=== PATIENT | female | born 1995 | race Caucasian/White ===

== ENCOUNTER 2017-01-14 13:45 | Emergency (ER) | payer OTHER ==
[2017-01-14 14:31] LABS: BASO % 0.2 % (0.1-1.2); EOS # 0.3 10_X3_uL (0.0-0.4); EOS % 2.3 % (0.7-5.8); GRAN # 9.2 10_X3_uL (1.6-6.1); GRAN % 74.6 % (34.0-71.1); HEMATOCRIT 37.8 % (34-45); HEMOGLOBIN 12.1 g/dL (11.2-15.7); LYMPH # 2.1 10_X3_uL (1.2-3.7); MEAN CORPUSCULAR HEMOGLOBIN 26.8 pg (27.0-33.0); MEAN CORPUSCULAR VOLUME 83.6 fL (79-95); MEAN PLATELET VOLUME 10.4 fl (7.5-11.5); MONO # 0.7 10_X3_uL (0.2-0.9); MONO % 5.9 % (4.7-12.5); PLATELET COUNT 279 x10_3/uL (182-369); RED BLOOD COUNT 4.52 x10_6/uL (3.9-5.2); WHITE BLOOD COUNT 12.4 x10_3/uL (4.0-10.0)
[2017-01-14 14:52] LABS: ALBUMIN 4.8 gm/dL (3.4-5.0); ALKALINE PHOSPHATASE 110 U/L (50-136); ALT/SGPT 18 U/L (3.5-33.9); AMYLASE 76 U/L (15.62-74.58); AST/SGOT 25 U/L (7.04-26.96); BILIRUBIN,TOTAL 0.37 mg/dL (0.0-1.0); BLOOD UREA NITROGEN 15 mg/dL (7-18); CALCIUM 9.1 mg/dL (8.7-10.7); CARBON DIOXIDE 26 mmol/L (21-32); CREATININE 0.6 mg/dL (0.6-1.3); GLUCOSE,RANDOM 74 mg/dL (70-99); LIPASE 18 U/L (6.75-60.75); SODIUM 140 mmol/L (136-145); TOTAL PROTEIN 7.9 gm/dL (6.4-8.2)
[2017-01-14 15:03] LABS: POTASSIUM 2.9 mmol/L (3.5-5.1)
== END 2017-01-14 18:29 | disposition home or self-care (01) ==
LOC: ER 13:45
PROVIDERS: Emergency Medicine
DX: R11.2 Nausea with vomiting, unspecified (principal); E87.6 Hypokalemia; N83.291 Other ovarian cyst, right side; M54.5 Low back pain; G40.909 Epilepsy, unspecified, not intractable, without status epilepticus; Z98.890 Other specified postprocedural states; Z88.7 Allergy status to serum and vaccine; Z79.899 Other long term (current) drug therapy
CPT/HCPCS: 36415; 80053; 82150; 83690; 84703; 85025; 96374; 96375; 96376; 99283-25; J8597